=== PATIENT | female | born 1980 | race Caucasian/White ===

== ENCOUNTER 2018-08-01 17:33 | Emergency (ER) | payer OTHER ==
[2018-08-01 17:50] VITALS: TEMP 98.5
[2018-08-01] MEDS ORDERED: TETANUS,DIPHTHERIA,PERTUSSIS 1 EA SYG IM ONE (17:52)
--- NOTE | 2018-08-01 17:54 | ED.PDOC ---
History of Present Illness - General Chief Complaint: Lower Extremity Injury Stated Complaint: R foot injury Time Seen by Provider: 08/01/18 17:51 Source: patient Exam Limitations: no limitations - History of Present Illness Initial Comments: patient comes in today with injury today's ago to her right foot. Patient dropped 60 pounds of weights on it. She has been able to somewhat ambulate it is still very painful and she was concerned about possible fracture. She also does have a slight abrasion over the area but states they were in boxes and it wasn't actually on the metal that actually broke the skin. However, she does not remember when the last time was that she received a tetanus shot. She has had a tubal ligation is otherwise healthy with no chronic medical problems. Timing/Duration: other Severity: moderate Improving Factors: immobilization Worsening Factors: movement Associated Symptoms: denies symptoms Allergies/Adverse Reactions: Allergies Amoxicillin [From Augmentin] Allergy (Verified 06/17/18 23:11) Clavulanic Acid [From Augmentin] Allergy (Verified 06/17/18 23:11) Review of Systems - Review of Systems Constitutional: States: no symptoms reported EENTM: States: no symptoms reported Respiratory: States: no symptoms reported Cardiology: States: no symptoms reported Gastrointestinal/Abdominal: States: no symptoms reported Musculoskeletal: States: see HPI Past Medical History (General) - Patient Medical History Hx Seizures: No Hx Stroke: No Hx Dementia: No Hx Asthma: No Hx of COPD: No Hx Cardiac Disorders: No Hx Congestive Heart Failure: No Hx Pacemaker: No Hx Hypertension: No Hx Thyroid Disease: No Hx Diabetes: No Hx Gastroesophageal Reflux: No Hx Renal Disease: No Hx Cancer: No Hx of HIV: No Hx Hepatitis C: No Hx MRSA: No - Vaccination History Hx Tetanus, Diphtheria Vaccination: No Hx Influenza Vaccination: No Hx Pneumococcal Vaccination: No - Social History Hx Tobacco Use: No Hx Alcohol Use: Yes - Occasional - Female History Patient : No Family Medical History - Family History Mother Family History: Unknown Hx Family;Other: High Cholesterol Physical Exam - Physical Exam General Appearance: Alert, Comfortable, No apparent distress Ears, Nose, Throat: hearing grossly normal Neck: non-tender Respiratory: chest non-tender, lungs clear, normal breath sounds, no respiratory distress Cardiovascular/Chest: normal peripheral pulses, regular rate, rhythm, no edema, no gallop, no JVD, no murmur Peripheral Pulses: radial,right: 2+, radial,left: 2+ Gastrointestinal/Abdominal: normal bowel sounds, non tender, soft Extremity: other - bruising and edema to midfoot and 2-4 phalanges of the right foot, FROM and normal sensation. Abrasion with superficial laceration that is scabbed to top of foot Progress - Results/Orders Results/Orders: normal xray Departure - Departure Clinical Impression: Contusion of foot Qualifiers: Encounter type: initial encounter Laterality: right Qualified Code(s): S90.31XA - Contusion of right foot, initial encounter Disposition: Discharge to Home or Self Care Condition: Good Departure Forms: ED Discharge - Pt. Copy, Patient Portal Self Enrollment Instructions: DI for Arm Pain, DI for Leg Pain Referrals: HELEN HATCH [Primary Care Provider] - 1-2 Weeks Additional Instructions: Ice and OTC IBU for pain.
--- NOTE | 2018-08-01 18:18 | RAD ---
CLINICAL HISTORY: 38 years Female trauma COMPARISON: None TECHNIQUE: AP, lateral and oblique views of the [] foot are obtained. FINDINGS: OSSEOUS: There is no evidence of acute fracture or osteolytic/osteoblastic lesions. There is no evidence of subluxation or dislocation. The joint spaces are preserved. Mild marginal osteophytosis in the first MTP joint noted indicating mild primary osteoarthritis. There is no evidence of marginal erosive changes to suggest an inflammatory arthritis. The ankle mortise is symmetric with a smooth talar dome and no evidence of widening of the distal tibiofibular syndesmosis. SOFT TISSUES: There is no significant soft tissue swelling or mass. No evidence of significant soft tissue calcifications. No radiopaque foreign bodies. There is no evidence of an ankle joint effusion. IMPRESSION: No acute osseous abnormality. Remainder of findings as described above. Electronically signed by: Rena Jenkins MD 08/01/2018 6:15 PM CDT
[2018-08-01 18:38] VITALS: BP 124/82; O2SAT 99
== END 2018-08-01 18:28 | disposition home or self-care (01) ==
LOC: ER 17:33
DX: S91.311A Laceration without foreign body, right foot, initial encounter (principal); Z88.1 Allergy status to other antibiotic agents; W20.8XXA Other cause of strike by thrown, projected or falling object, initial encounter; Y92.9 Unspecified place or not applicable